=== PATIENT | male | born 1955 | race Caucasian/White ===

== ENCOUNTER → 2020-11-25 | Outpatient (CLI) | payer OTHER | LOC: SJCVCIMAG 07:59 | PROVIDERS: ATTEND Internal Medicine | DX: I08.0 Rheumatic disorders of both mitral and aortic valves (principal); I11.9 Hypertensive heart disease without heart failure; I49.3 Ventricular premature depolarization; I48.91 Unspecified atrial fibrillation; R06.00 Dyspnea, unspecified; G47.33 Obstructive sleep apnea (adult) (pediatric); E66.9 Obesity, unspecified; Z79.899 Other long term (current) drug therapy ==

== ENCOUNTER → 2020-11-28 | Outpatient (CLI) | payer OTHER ==
[~2020-11-28] MED LIST: ALLOPURINOL 10100 M3 PO; AZITHROMYCIN500 MG PO; CARAFATE 1 GM TA1 GM PO; CARVEDILOL25 MG PO; CHLORTHALIDONE25 MG PO; COZAAR 25 MG TA25 M1 PO; EFFER-K 20 MEQ20 ME1 PO; ELIQUIS5 MG PO; FLEXERIL PO; FLOMAX0.4 MG PO; FLONASE 0.05%50 MCG NARES; HYDRALAZINE HC100 MG PO; HYDROCODON-ACE1 EAC5 PO; METFORMIN HCL500 M3 PO; MYRBETRIQ25 MG PO; NEURONTIN 400400 M1 PO; NIFEDIPINE ER30 M1 PO; OXYBUTYNIN 5 MG5 M2 PO; PROAIR HFA8.5 GM INH; PROTONIX40 M2 PO
== END ==
LOC: SJCVC 10:21
PROVIDERS: ATTEND Internal Medicine
DX: R06.00 Dyspnea, unspecified (principal); I10 Essential (primary) hypertension; G47.33 Obstructive sleep apnea (adult) (pediatric); I48.0 Paroxysmal atrial fibrillation; J44.9 Chronic obstructive pulmonary disease, unspecified; E11.9 Type 2 diabetes mellitus without complications; E78.5 Hyperlipidemia, unspecified; Z98.84 Bariatric surgery status; Z87.891 Personal history of nicotine dependence; Z99.89 Dependence on other enabling machines and devices; Z79.4 Long term (current) use of insulin; Z79.899 Other long term (current) drug therapy; Z72.89 Other problems related to lifestyle; Z88.0 Allergy status to penicillin

== ENCOUNTER → 2020-11-30 | Outpatient (CLI) | payer OTHER ==
--- NOTE | 2020-12-02 14:30 | SLE ---
[facility] [address] [place] [address] POLYSOMNOGRAPHY STUDY Name: JR VILLELA Room #: REG [facility]#: [id number] Admission: 11/30/20 Attend Phys: Brian Samson MD Discharge: Date of : 57 Report #: [id number] THIS REPORT FOR: cc: Parth Avalos,Parth Rodriguez,Brian Alex MD ~ DATE OF SERVICE: 12/01/2020 SLEEP STUDY ATTENDING PHYSICIAN: Dr. Toni Hansen. The patient is a 65-year-old who weighs 360 pounds with a BMI of 47.5. The patient's Glidden score was 14. The patient has a history of sleep apnea, which was diagnosed some 15 years ago. The patient has been using CPAP at 12 cm water. The patient has also history of congestive heart failure and new onset atrial fibrillation. The patient has reportedly had increasing daytime somnolence. As a result, a repeat CPAP/BiPAP titration study was performed. During the night of the study, the patient spent 462 minutes in bed and slept for 414 minutes with a sleep efficiency of 89%. Sleep latency was 5.6 minutes with a REM latency of 55 minutes. Sleep architecture showed normal stage 1 and stage 2 sleep, normal slow wave and normal REM sleep. EKG monitoring revealed an average heart rate of 61 beats per minute. It was atrial fibrillation. Frequent PVCs were observed. No sustained arrhythmias observed. PLMS were seen at an index of 35 per hour, but only 1.6 per hour caused EEG arousals. The patient was started on CPAP at 13 cm water and titrated up to a 15 cm water. The patient was switched to BiPAP as there was evidence of Dakota-Correa breathing pattern. The BiPAP pressure was increased up to 21/13. A backup rate of 14 beats per minute was also added at the final BiPAP pressure to improve the central component of the sleep apnea. One liter of oxygen was added since oxygen saturations were less than 90% despite elimination of respiratory events. At the final BiPAP pressure of 21/13 with a backup rate of 14, the patient slept for 56 minutes. The patient had supine as well as lateral sleep. The patient did not have any REM sleep. The patient's AHI was reduced to 0 per hour and oxygen saturation remained above 95%. IMPRESSION: 1. Sleep apnea diagnosed by previous sleep study. 2. Dakota-Correa breathing pattern resolved with BiPAP with a backup rate. [facility] [address] [place] [address] POLYSOMNOGRAPHY STUDY Name: JR VILLELA Kassie Room #: [facility]#: [id number] Admission: 11/30/20 Attend Phys: Brian Samson MD Discharge: Date of : 57 Report #: [id number] 3. Moderate periodic limb movements without any significant EEG arousals. RECOMMENDATIONS: 1. BiPAP at a pressure of 21/13 with a backup rate of 14 and 1 liter of oxygen should be used on a nightly basis. It completely eliminated the patient's sleep apnea. 2. Follow up in 4-6 weeks to assess compliance with BiPAP and to document clinical improvement. 3. Weight loss is strongly advised. 4. Avoid MERCHANDISER depressants. 5. Cautioned regarding driving until symptoms of sleep apnea resolve with the use of BiPAP. 6. The patient should follow up with Cardiology regarding atrial fibrillation. 7. PLMS does not need to be treated unless the patient has symptoms of restless legs during the day. <ELECTRONICALLY SIGNED> By: Brian Samson MD 12/02/20 1430 [id number] [id number] Brian Samson MD /nt
== END ==
LOC: SLEEPLAB 13:40
PROVIDERS: ATTEND Internal Medicine Critical Care Medicine
DX: G47.30 Sleep apnea, unspecified (principal); I50.9 Heart failure, unspecified

== ENCOUNTER → 2020-12-03 | Outpatient (CLI) | payer OTHER ==
[~2020-12-03] VITALS: Ht 185.4 cm; Wt 166.9 kg
[2020-12-03 09:51] VITALS: BP 141/77
--- NOTE | 2020-12-03 09:57 | EKG ---
[address] [address] ELECTROCARDIOGRAM REPORT Name: VILLELAJR Room #: REG [facility]#: [id number] Admission: 12/03/20 Attend Phys: Toni Hansen Discharge: Date of : 57 Report #: [id number] [facility] Test Date: 2020-12-03 Test Time: 09:54:51 Pat Name: JR VILLELA Department: Room: Gender: M [employer]ized [employer] Captain: CRISTIAN : 1955 Requested By: Toni Hansen Order Number: [id number] MD: Francois Cummins Measurements Intervals [place] Rate: 75 P: ME: QRS: -70 QRSD: 157 T: 56 QT: 484 QTc: 541 Interpretive Statements Atrial fibrillation Right bundle branch block Compared to ECG 01/20/2003 13:32:16 Right bundle-branch block now present Sinus rhythm no longer present Left-axis deviation no longer present Myocardial infarct finding no longer present Electronically Signed On 12-03-2020 9:57:13 CDT by Francois Cummins [email or web address] <ELECTRONICALLY SIGNED> By: Francois Cummins MD, [facility] 12/03/20 0957 0954 Francois Cummins MD, [facility]
[2020-12-03 10:04] LABS: HEMATOCRIT 41.2 % (42.0-52.0); HEMOGLOBIN 13.9 gm/dL (14.0-18.0); MCH 28.4 pg (26.0-34.0); MCHC 33.7 g/dL (28.0-37.0); MCV 84.3 fL (80.0-100.0); RBC 4.88 mil/uL (4.50-6.00); WBC 7.4 thou/uL (4.0-11.0)
[2020-12-03 10:11] LABS: CALCIUM 8.5 mg/dL (8.5-10.1); CREATININE 1.5 mg/dL (0.7-1.3); POTASSIUM 4.3 mmol/L (3.5-5.1)
--- NOTE | 2020-12-10 11:16 | CATHLAB ---
[facility] [address] [place] [address] INVASIVE PROCEDURE REPORT Name: JR VILLELA Kassie [facility] [id number] Admission: 12/03/20 Attend Phys: Toni Hansen Discharge: Date of : 57 Report #: [id number] THIS REPORT FOR: cc: Parth Avalos Michael DO Lammoglia, Francisco J. MD ~ APPROVED REPORT Study performed: 12/03/2020 10:56:03 Patient Details Patient Status: Out-Patient Room #: The patient is a 65 year-old male Event Personnel Toni Hansen Gis Administrator, Noris Escalante RN RN, Natalie Quick RTR Monitor, Caroline Ulloa RTR, ROUGH AND TRUEING MACHINE OPERATOR Scrub Procedures Performed Art Access - R femoral artery* Left Heart Cath w/or w/o Coronaries [id number] [facility] Hemostasis w/ Mynx 89402 Initial Mod Sed Same Phys/QHP Gr 678225 42860 Mod Sed Same Phys/QHP 663617, supervision of conscious sedation Procedure Narrative The Right Groin^ was infiltrated with 1% Lidocaine subcutaneous anesthesia. A PINNACLE 6FR Sheath #[id number] sheath was inserted into the RFA^. Coronary angiography was performed using coronary diagnostic catheters. The right coronary system was accessed and visualized with a 6FR JL5 #[id number] catheter. The left coronary system was accessed and visualized with a 6FR JR 4 #[id number] catheter. The left ventricle was accessed and visualized with a 6FR PIGTAIL 145 ANGLED #[id number] catheter. Closure device was deployed with a Fr MYNXGRIP 6/7F #[id number]. The patient tolerated the procedure well and there were no complications associated with the procedure. There was no hematoma. Intraoperative Conscious Sedation Sedation start time: 11:26 Case end Time: 11:56 Versed 2 mg Fluoro Time: 3.46 minutes [facility] [place] [address] INVASIVE PROCEDURE REPORT Name: JR VILLELA Room #: REG [facility]#: [id number] Admission: 12/03/20 Attend Phys: Toni Leong Discharge: Date of : 57 Report #: [id number] Dose: DAP 9787.70 cGycm2 1298 mGy Contrast Type and Amount: Omnipaque 95 ml Diagnostic Cath Left Main Large caliber of normal origin trifucates into LAD,RAMUS, LCX arteries. there is luminal irregularities but no high grade lesions. LAD large caliber type II vessel coursing in anterior interventricular sulcus givinig rise to septal and diagonal vessels. the artery tapers with moderate lesions until terminal portion which is tourtuous less than 0.5mm diameter and has a high grade lesion. Diagonal 1 diminuitive vessel with luminal irregularities Diagonal 2 small caliber vessel with at least 50% lesion at its origin. rapidly tapering along the anterolateral wall Circumflex large caliber dominant vessel coursing in the av groove giving rise to a moderate marginal branch. mild irregularities are noted as it courses posteriorly giving rise to small posterior circulation OM1 small caliber vessel withoput lesions until distal third where there is a 90% lesion noted at it terminus OM2 small caliber vessel L PDA small caliber without significant stenosis but with irregiularities Right Coronary small nondominat vessel Left Ventriculography Left Ventriculography was not performed. Hemodynamics The aortic pressure is 174/99 mmHg with a mean of 129 mmHg. The left ventricular pressure is 191/15 mmHg with a mean of mmHg. The left ventricular end diastolic pressure is 26 mmHg. Conclusion 1. Coronary artery disease moderate with severe distal Lad oand Om1 2. Normal hemodynamics Recommendations Cardiac Risk Reduction Program Medical Therapy <ELECTRONICALLY SIGNED> By: Toni Hansen MD 12/10/20 1116 15 111 Toni Hansen MD /INF
== END | disposition home or self-care (01) ==
LOC: CATH 08:52
PROVIDERS: ATTEND Internal Medicine
DX: I25.10 Atherosclerotic heart disease of native coronary artery without angina pectoris (principal); R06.00 Dyspnea, unspecified; I11.0 Hypertensive heart disease with heart failure; I50.9 Heart failure, unspecified; J44.9 Chronic obstructive pulmonary disease, unspecified; K21.9 Gastro-esophageal reflux disease without esophagitis; E11.9 Type 2 diabetes mellitus without complications; G47.33 Obstructive sleep apnea (adult) (pediatric); I48.91 Unspecified atrial fibrillation; E66.09 Other obesity due to excess calories; Z98.890 Other specified postprocedural states; Z79.899 Other long term (current) drug therapy; Z79.4 Long term (current) use of insulin; Z79.01 Long term (current) use of anticoagulants; Z87.891 Personal history of nicotine dependence; Z88.0 Allergy status to penicillin

== ENCOUNTER → 2021-01-07 | Outpatient (CLI) | payer OTHER | LOC: SJCVC 15:05 | PROVIDERS: ATTEND Internal Medicine Cardiovascular Disease | DX: R94.31 Abnormal electrocardiogram [ECG] [EKG] (principal); I45.10 Unspecified right bundle-branch block; I48.19 Other persistent atrial fibrillation; I42.0 Dilated cardiomyopathy; I25.10 Atherosclerotic heart disease of native coronary artery without angina pectoris; E66.01 Morbid (severe) obesity due to excess calories; I10 Essential (primary) hypertension; G47.33 Obstructive sleep apnea (adult) (pediatric); E11.9 Type 2 diabetes mellitus without complications; J44.9 Chronic obstructive pulmonary disease, unspecified; I48.0 Paroxysmal atrial fibrillation; E78.5 Hyperlipidemia, unspecified; Z98.84 Bariatric surgery status; Z88.0 Allergy status to penicillin; Z79.4 Long term (current) use of insulin; Z79.899 Other long term (current) drug therapy; Z98.890 Other specified postprocedural states; Z68.43 Body mass index [BMI] 50.0-59.9, adult; Z87.891 Personal history of nicotine dependence; Z82.49 Family history of ischemic heart disease and other diseases of the circulatory system ==

== ENCOUNTER → 2021-01-23 | Outpatient (CLI) | payer OTHER ==
[~2021-01-23] VITALS: Ht 185.4 cm; Wt 169.2 kg
[2021-01-23 07:47] LABS: ABSOLUTE NEUTROPHILS 3.8 thou/uL (1.4-8.2); BASOPHILS 0.9 % (0.0-2.0); EOSINOPHILS 4.6 % (0.0-3.0); HEMATOCRIT 37.2 % (42.0-52.0); HEMOGLOBIN 12.7 gm/dL (14.0-18.0); MCHC 34.1 g/dL (28.0-37.0); MCV 85.2 fL (80.0-100.0); MONOCYTES 9.2 % (1.0-8.0); PLATELET COUNT 176 thou/uL (150-400); POLYS 70.3 % (36.0-66.0); RBC 4.37 mil/uL (4.50-6.00); WBC 5.5 thou/uL (4.0-11.0)
[2021-01-23 07:55] LABS: CALCIUM 8.7 mg/dL (8.5-10.1); CREATININE 1.6 mg/dL (0.7-1.3); POTASSIUM 4.3 mmol/L (3.5-5.1)
[2021-01-23 08:00] LABS: ALBUMIN 3.3 g/dL (3.4-5.0); TOTAL BILIRUBIN 0.4 mg/dL (0.2-1.0); TOTAL PROTEIN 6.4 g/dL (6.4-8.2)
[2021-01-23 08:11] LABS: INR 0.9; PROTIME 9.8 Seconds (9.3-11.4)
--- NOTE | 2021-01-28 13:42 | P ---
[facility] [address] [place] [address] PROCEDURE REPORT Name: JR VILLELA Room #: REG [facility]#: [id number] Admission: 01/23/21 Attend Phys: Steven Anderson MD Discharge: Date of : 57 Report #: [id number] THIS REPORT FOR: cc: Parth Avalos,Parth Salazar,Steven Nicole MD ~ DATE OF SERVICE: 01/23/2021 CARDIOVERSION PREOPERATIVE DIAGNOSIS: Atrial fibrillation. POSTOPERATIVE DIAGNOSIS: Atrial fibrillation. DESCRIPTION OF PROCEDURE: The patient was brought into the procedure suite in a fasting and sedated state. He was prepped and draped in standard fashion with patches placed in AP position. He was then sedated by the Anesthesiology Service and then underwent cardioversion at 200 joules, which was unsuccessful. A repeat 200 joules was also unsuccessful. I then repositioned his anterior patch, placed this slightly higher and a third 200 joules synchronized cardioversion resulted in sinus rhythm. There were no procedural related complications. CONCLUSION: Successful DC cardioversion with zoroastrian of sinus rhythm. <ELECTRONICALLY SIGNED> By: Steven Anderson MD 01/28/21 1342 1023 0112 Steven Anderson MD /nt
== END | disposition home or self-care (01) ==
LOC: CATH 01-15 07:57
PROVIDERS: ATTEND Internal Medicine Cardiovascular Disease
DX: I48.91 Unspecified atrial fibrillation (principal); I11.0 Hypertensive heart disease with heart failure; I50.9 Heart failure, unspecified; E11.9 Type 2 diabetes mellitus without complications; K21.9 Gastro-esophageal reflux disease without esophagitis; G47.33 Obstructive sleep apnea (adult) (pediatric); Z98.890 Other specified postprocedural states; Z79.899 Other long term (current) drug therapy; Z79.01 Long term (current) use of anticoagulants; Z87.891 Personal history of nicotine dependence; Z82.49 Family history of ischemic heart disease and other diseases of the circulatory system; Z88.0 Allergy status to penicillin
CPT/HCPCS: 62110; 62900

== ENCOUNTER → 2021-02-18 | Outpatient (CLI) | payer OTHER | LOC: SJCVCIMAG 08:06 | PROVIDERS: ATTEND Internal Medicine Cardiovascular Disease | DX: I08.3 Combined rheumatic disorders of mitral, aortic and tricuspid valves (principal); I11.9 Hypertensive heart disease without heart failure; I77.89 Other specified disorders of arteries and arterioles; R94.31 Abnormal electrocardiogram [ECG] [EKG]; I48.21 Permanent atrial fibrillation; I25.10 Atherosclerotic heart disease of native coronary artery without angina pectoris; I10 Essential (primary) hypertension; R06.00 Dyspnea, unspecified; E66.9 Obesity, unspecified; G47.33 Obstructive sleep apnea (adult) (pediatric); E11.9 Type 2 diabetes mellitus without complications; Z68.43 Body mass index [BMI] 50.0-59.9, adult; Z88.0 Allergy status to penicillin; Z79.84 Long term (current) use of oral hypoglycemic drugs; E78.5 Hyperlipidemia, unspecified; Z79.899 Other long term (current) drug therapy; Z87.891 Personal history of nicotine dependence; Z82.49 Family history of ischemic heart disease and other diseases of the circulatory system ==

== ENCOUNTER → 2021-06-11 | Outpatient (CLI) | payer OTHER | LOC: SJCVC 15:27 | PROVIDERS: ATTEND Internal Medicine Cardiovascular Disease | DX: R94.31 Abnormal electrocardiogram [ECG] [EKG] (principal); I45.10 Unspecified right bundle-branch block; I48.0 Paroxysmal atrial fibrillation; E66.9 Obesity, unspecified; G47.33 Obstructive sleep apnea (adult) (pediatric); I10 Essential (primary) hypertension; E11.9 Type 2 diabetes mellitus without complications; J44.9 Chronic obstructive pulmonary disease, unspecified; E78.5 Hyperlipidemia, unspecified; Z88.0 Allergy status to penicillin; Z79.84 Long term (current) use of oral hypoglycemic drugs; Z79.899 Other long term (current) drug therapy; Z72.89 Other problems related to lifestyle; Z87.891 Personal history of nicotine dependence ==

== ENCOUNTER → 2021-07-15 | Outpatient (CLI) | payer OTHER | LOC: SJCVC 14:40 | PROVIDERS: ATTEND Internal Medicine Cardiovascular Disease | DX: I45.10 Unspecified right bundle-branch block (principal); R94.31 Abnormal electrocardiogram [ECG] [EKG]; I48.91 Unspecified atrial fibrillation; J44.9 Chronic obstructive pulmonary disease, unspecified; E11.9 Type 2 diabetes mellitus without complications; E78.5 Hyperlipidemia, unspecified; I10 Essential (primary) hypertension; E66.9 Obesity, unspecified; Z79.4 Long term (current) use of insulin; Z79.899 Other long term (current) drug therapy; Z88.0 Allergy status to penicillin ==